=== PATIENT | female | born 1995 | race Caucasian/White ===

== ENCOUNTER 2016-06-30 23:00 | Emergency (ER) | payer SELFPAY ==
[2016-06-30] MEDS ORDERED: Acetaminophen/Codeine 30-300mg Tablet ONE (23:44)
[2016-06-30] MEDS ORDERED: Naproxen 500 MG TAB ONE (23:44)
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
== END 2016-07-01 01:15 | disposition home or self-care (01) ==
LOC: MADERS 23:00
DX: S06.0X9A Concussion with loss of consciousness of unspecified duration, initial encounter (principal); M54.2 Cervicalgia; V89.2XXA Person injured in unspecified motor-vehicle accident, traffic, initial encounter
CPT/HCPCS: 70450; 72125; 72128